=== PATIENT | male | born 1970 | race American Indian/Alaskan Native ===

== ENCOUNTER 2018-02-02 06:35 | Emergency (ER) | payer SELFPAY ==
[2018-02-02 06:54] VITALS: BP 124/72
[2018-02-02] MEDS ORDERED: ASPIRIN PO ONE (06:54)
[2018-02-02 07:27] LABS: Basophils # (Auto) 0.1 K/mm3 (0.0-0.1); Basophils % (Auto) 0.9 % (0.0-1.8); Eosinophils # (Auto) 0.1 K/mm3 (0.0-0.4); Hematocrit 41.7 % (35.5-45.6); Lymphocytes # (Auto) 1.4 K/mm3 (1.2-5.4); Lymphocytes % (Auto) 22.4 % (13.4-35.0); Mean Corpuscular HGB Conc 34 % (32-34); Mean Corpuscular Hemoglobin 31 pg (28-32); Mean Corpuscular Volume 93 fl (84-94); Monocytes # (Auto) 0.7 K/mm3 (0.0-0.8); Monocytes % (Auto) 10.9 % (0.0-7.3); Platelet Count 136 K/mm3 (140-440); Red Blood Count 4.51 M/mm3 (3.65-5.03)
[2018-02-02 07:43] LABS: BUN/Creatinine Ratio 13; Blood Urea Nitrogen 12 mg/dL (9-20); Calcium 8.7 mg/dL (8.4-10.2); Hemolysis Index 10
--- NOTE | 2018-02-02 11:12 | XRay Report ---
AP CHEST: HISTORY: chest pain AP view of the chest demonstrates a normal mediastinal and cardiac contour with clear lungs and normal bony and soft tissue structures. IMPRESSION: Unremarkable AP chest.
--- NOTE | 2018-02-02 11:15 | Emergency Department Report ---
ED General Adult HPI - General Chief complaint: Chest Pain Stated complaint: CHEST PAIN Time Seen by Provider: 02/02/18 10:42 Source: patient Mode of arrival: Ambulatory Limitations: No Limitations - History of Present Illness Initial comments: Patient complains of left elbow, left arm, left chest wall pain after hitting the wall by mistake yesterday while walking. Patient states that yesterday he denies there is any pain but around 2:30 this morning he woke up due to the pain. He states that in underside of his left chest wall hurts as well as his left elbow. Patient describes the pain as sharp in nature and made worse with movement and alleviated with rest. Patient states the pain is a 7 out of 10 with movement and is 0 out of 10 when still. He denies headache, abdominal pain , shortness of breath. - Related Data Previous Rx's Medication Instructions Recorded Last Taken Type Tramadol HCl [Ultram] 50 mg PO Q6HR PRN #20 tablet 02/02/18 Unknown Rx predniSONE [Deltasone] 50 mg PO QDAY #5 tab 02/02/18 Unknown Rx Allergies Allergy/AdvReac Type Severity Reaction Status Date / Time naproxen Allergy Anaphylaxis Verified 02/02/18 06:50 ED Review of Systems ROS: Stated complaint: CHEST PAIN Other details as noted in HPI Constitutional: denies: chills, fever Eyes: denies: eye pain, eye discharge, vision change ENT: denies: ear pain, throat pain Respiratory: denies: cough, shortness of breath, wheezing Cardiovascular: chest pain. denies: palpitations Endocrine: no symptoms reported Gastrointestinal: denies: abdominal pain, nausea, diarrhea Genitourinary: denies: urgency, dysuria Musculoskeletal: other (elbow pain). denies: back pain, joint swelling, arthralgia Skin: denies: rash, lesions Neurological: denies: headache, weakness, paresthesias Psychiatric: denies: anxiety, depression Hematological/Lymphatic: denies: easy bleeding, easy bruising ED Past Medical Hx - Past Medical History Previous Medical History?: No - Surgical History Past Surgical History?: No - Social History Smoking Status: Never Smoker Substance Use Type: Marijuana - Medications Home Medications: Home Medications Medication Instructions Recorded Confirmed Last Taken Type Tramadol HCl [Ultram] 50 mg PO Q6HR PRN #20 tablet 02/02/18 Unknown Rx predniSONE [Deltasone] 50 mg PO QDAY #5 tab 02/02/18 Unknown Rx ED Physical Exam - General Limitations: No Limitations General appearance: alert, in no apparent distress - Head Head exam: Present: atraumatic, normocephalic - Eye Eye exam: Present: normal appearance - ENT ENT exam: Present: mucous membranes moist - Neck Neck exam: Present: normal inspection - Respiratory Respiratory exam: Present: normal lung sounds bilaterally, chest wall tenderness (left lateral aspect tender to palpation). Absent: respiratory distress, wheezes, rales, rhonchi - Cardiovascular Cardiovascular Exam: Present: regular rate, normal rhythm. Absent: systolic murmur, diastolic murmur, rubs, gallop - GI/Abdominal GI/Abdominal exam: Present: soft, normal bowel sounds. Absent: distended, tenderness - Rectal Rectal exam: Present: deferred - Extremities Exam Extremities exam: Present: normal inspection, other (tender to palpation at the social across attendance at the elbow) - Back Exam Back exam: Present: normal inspection - Neurological Exam Neurological exam: Present: alert, oriented X3, CN II-XII intact. Absent: motor sensory deficit - Psychiatric Psychiatric exam: Present: normal affect, normal mood - Skin Skin exam: Present: warm, dry, intact, normal color. Absent: rash ED Course Vital Signs 02/02/18 02/02/18 06:41 11:27 Temperature 97.7 F Pulse Rate 71 Respiratory 20 20 Rate Blood Pressure 124/72 O2 Sat by Pulse 97 Oximetry ED Medical Decision Making - Lab Data Result diagrams: 02/02/18 06:55 02/02/18 06:55 - Medical Decision Making Discussed results with the patient Critical care attestation.: If time is entered above; I have spent that time in minutes in the direct care of this critically ill patient, excluding procedure time. ED Disposition Clinical Impression: Chest wall pain, Elbow injury Disposition: DC- TO HOME OR SELFCARE Is pt being admited?: No Does the pt Need Aspirin: No Condition: Stable Instructions: Thoracic Pain (ED), Arthralgia (ED), Elbow Sprain (ED) Additional Instructions: return if worse Prescriptions: predniSONE [Deltasone] 50 mg PO QDAY #5 tab Tramadol HCl [Ultram] 50 mg PO Q6HR PRN #20 tablet PRN Reason: pain Referrals: PRIMARY CARE, [Primary Care Provider] - 3-5 Days [facility] [Outside] - 3-5 Days Time of Disposition: 11:59
[2018-02-02] MEDS ORDERED: TYLENOL #3 PO ONE (11:16)
[2018-02-02] MEDS ORDERED: ZOFRAN ODT PO ONE (11:16)
--- NOTE | 2018-02-02 11:38 | XRay Report ---
LEFT ELBOW, 3 views: History: left elbow pain. The bony architecture is intact without evidence of fracture or dislocation. No significant soft tissue abnormality is seen. IMPRESSION: Normal left elbow.
== END 2018-02-02 12:03 | disposition home or self-care (01) ==
LOC: ED 06:35
DX: S59.902A Unspecified injury of left elbow, initial encounter (principal); R07.89 Other chest pain; F12.10 Cannabis abuse, uncomplicated; Z88.6 Allergy status to analgesic agent; W22.01XA Walked into wall, initial encounter; Y93.01 Activity, walking, marching and hiking; Y92.89 Other specified places as the place of occurrence of the external cause; Y99.8 Other external cause status
CPT/HCPCS: 36415; 71045; 80048; 84484; 85025; 93005; 93010; Q0162